=== PATIENT | female | born 1970 | race African-American/Black ===

== ENCOUNTER → 2016-12-10 | Outpatient (CLI) | payer OTHER ==
--- NOTE | ~2016-12-10 | CR63 ---
[facility] A Service of [facility] RADIOLOGY TEXT RESULTS PATIENT: MANDA JACKSON LOCATION: [facility] : 66 UNIT #: [id number] AGE: [address]: Iris Villalobos APRN SEX: F ORDER DR: [id number] [facility] [address] [place], [place] [address] [id number] O MR#: [id number] Acc #: [id number] NAME: MANDA JACKSON : 1970 SEX: F STUDY DATE/TIME: 12/10/2016 11:02 UNIT: [facility] ROOM: STUDY DESCRIPTION: CR Chest 2 View Attending Physician: Iris Villalobos Aprn Referring Physician: Iris Villalobos Aprn Ordering Physician: Iris Villalobos Aprn Primary Care Physician: Nilam Rosa M.D. MEDICAL IMAGING REPORT This report is preliminary unless electronic signature is present EXAM Chest x-ray. HISTORY Cough, wheezing, and shortness of breath with left-sided pain for the past month. TECHNIQUE 2 views of the chest were obtained and compared with 03/29/2013. FINDINGS PA and lateral examination of the chest upright shows a good expansion of the parenchyma with a normal distribution of the pulmonary vascularity. There is no indication of congestion, effusion, infiltrate, tumor, or nodular density. The pleural reflections and diaphragmatic contours are normal. The cardiac silhouette and mediastinal anatomy is within normal limits. IMPRESSION Normal chest. Dictated by... Abhishek Jimenes M.D. THIS IS AN ELECTRONICALLY VERIFIED REPORT Abhishek Jimenes M.D. at 12/11/2016 9:12 AM BERTF/eusebio TD: 12/10/2016 11:50 JOB #: [id number] [facility] A Service of [facility] RADIOLOGY TEXT RESULTS PATIENT: MANDA JACKSON LOCATION: [facility] : 66 UNIT #: [id number] AGE: [address]: Iris Villalobos APRN SEX: F ORDER DR: MEDICAL IMAGING REPORT Page 1 of 1 COPY
--- NOTE | ~2016-12-10 | CR7 ---
[facility] A Service of [facility] RADIOLOGY TEXT RESULTS PATIENT: MANDA JACKSON LOCATION: [facility] : 66 UNIT #: [id number] AGE: [address]: Iris Villalobos APRN SEX: F ORDER DR: [id number] [facility] [address] [place], [place] [address] [id number] O MR#: [id number] Acc #: [id number] NAME: MANDA JACKSON : 1970 SEX: F STUDY DATE/TIME: 12/10/2016 11:03 UNIT: [facility] ROOM: STUDY DESCRIPTION: CR Abdomen Single AP View Attending Physician: Iris Villalobos Aprn Referring Physician: Iris Villalobos Aprn Ordering Physician: Iris Villalobos Aprn Primary Care Physician: Nilam Rosa M.D. MEDICAL IMAGING REPORT This report is preliminary unless electronic signature is present EXAM KUB HISTORY Abdominal pain toward the left side, crampy in nature chronically over the past year. TECHNIQUE Single view of the abdomen was obtained. FINDINGS The bowel gas pattern is normal. Bony structures are unremarkable. Pelvic calcifications are noted bilaterally, unchanged from CT scan of 07/10/2013. IMPRESSION Negative KUB. Dictated by... Abhishek Jimenes M.D. THIS IS AN ELECTRONICALLY VERIFIED REPORT Abhishek Jimenes M.D. at 12/11/2016 12:14 PM BERTF/eusebio TD: 12/11/2016 10:57 JOB #: [id number] MEDICAL IMAGING REPORT Page 1 of 1 COPY
== END | disposition home or self-care (01) ==
LOC: CRAD 10:36
DX: R06.2 Wheezing (principal); R05 Cough; R10.9 Unspecified abdominal pain
CPT/HCPCS: 71020; 74000

== ENCOUNTER → 2016-12-14 | Outpatient (CLI) | payer OTHER ==
--- NOTE | ~2016-12-14 | PFT ---
[id number] [facility] [address]. [place], [place] [address] [id number] O MR#: [id number] NAME: MANDA JACKSON ROOM: SEX: F STUDY DATE/TIME: : 1970 AGE: 46 STUDY DESCRIPTION: Attending Physician: Smita Interiano Referring Physician: Smita Interiano Primary Care Physician: Nilam Rosa M.D. PULMONARY DIAGNOSTIC REPORT EXAM Pulmonary function test. DESCRIPTION Spirometry is normal. There is no significant response to bronchodilators. Full volume loop is normal. Lung volume reveal suggestion of mild air trapping. ERV is reduced, which can be seen in obesity. Diffusion capacity is low normal. Dictated by... Bal Hagen M.D. WENDY/oneida TD: 12/26/2016 09:47 JOB #: [id number] PULMONARY DIAGNOSTIC REPORT Page 1 of 1
== END | disposition home or self-care (01) ==
LOC: CRC 09:39
DX: J45.909 Unspecified asthma, uncomplicated (principal)
CPT/HCPCS: 94060; 94726; 94729